=== PATIENT | female | born 1955 | race Hispanic/Latino ===

== ENCOUNTER 2018-02-24 14:48 | Emergency (ER) | payer OTHER ==
--- NOTE | 2018-02-24 16:55 | RAD REPORT ---
EXAM DESCRIPTION: Lumbar Spine 3 Views CLINICAL HISTORY: Radiculopathy COMPARISON: None. FINDINGS: Vertebral body heights appear maintained. No compression fracture noted. Disc thinning wit h small endplate osteophyte is noted L5-S1. Minimal degenerative anterolisthesis of L4 on 5 is seen. Cholecystectomy clips are present. IMPRESSION: Mild lower lumbar spondylosis.
--- NOTE | 2018-02-24 17:05 | EDPHYS ---
Physician Documentation [facility] Name: Karen Mueller Age: 62 yrs Sex: Female : 1955 Arrival Date: 02/24/2018 Time: 14:51 Bed 23 Private MD: Marcos Porter ED Physician Marcell Samuel HPI: 02/24 16:59 This 62 yrs old Female presents to ER via Ambulatory with complaints of Back pm1 Injury. 16:59 The patient presents with pain that is acute. The symptoms are located in the low back. pm1 Onset: The symptoms/episode began/occurred today, Just before lunch time. The pain does not radiate. Associated signs and symptoms: Pertinent negatives: abdominal pain, chest pain, dysuria, fever, numbness, tingling, vomiting, weakness. The problem was sustained when bending over, when lifting Bag of wet linen. Modifying factors: The patient symptoms are alleviated by OTC meds, Took two ibuprofen with lunch, the patient symptoms are aggravated by bending, lifting. Severity of symptoms: At their worst the symptoms were a " 5" out of "10", in the emergency department the symptoms have improved, a " 4" out of "10". The patient has not experienced similar symptoms in the past. Historical: - Allergies: 14:54 No Known Allergies; hj - Home Meds: 14:54 lisinopril 20 mg Oral tab 1 tab once daily [Active]; hj - PMHx: 14:54 Hypertension; hj - PSHx: 14:54 Cholecystectomy; hj - Immunization history:: Pneumococcal vaccine is not up to date, Flu vaccine is up to date. - Social history:: Smoking status: Patient/guardian denies using tobacco, never smoked. - Immunization history: Last tetanus immunization:. ROS: 16:59 Constitutional: Negative for fever, chills, and weight loss, Eyes: Negative for injury, pm1 pain, redness, and discharge, ENT: Negative for injury, pain, and discharge, Neck: Negative for injury, pain, and swelling, Cardiovascular: Negative for chest pain, palpitations, and edema, Respiratory: Negative for shortness of breath, cough, wheezing, and pleuritic chest pain, Abdomen/GI: Negative for abdominal pain, nausea, vomiting, diarrhea, and constipation. 16:59 : Negative for injury, bleeding, discharge, and swelling, MS/Extremity: Negative for injury and deformity, Skin: Negative for injury, rash, and discoloration, Neuro: Negative for headache, weakness, numbness, tingling, and seizure. 16:59 Back: Positive for of the low back area, Pain. Exam: 16:59 Constitutional: This is a well developed, well nourished patient who is awake, alert, pm1 and in no acute distress. Head/Face: Normocephalic, atraumatic. Neck: Trachea midline, no thyromegaly or masses palpated, and no cervical lymphadenopathy. Supple, full range of motion without nuchal rigidity, or vertebral point tenderness. No Meningismus. Chest/axilla: Normal chest wall appearance and motion. Nontender with no deformity. No lesions are appreciated. Cardiovascular: Regular rate and rhythm with a normal S1 and S2. No gallops, murmurs, or rubs. Normal PMI, no JVD. No pulse deficits. Respiratory: Lungs have equal breath sounds bilaterally, clear to auscultation and percussion. No rales, rhonchi or wheezes noted. No increased work of breathing, no retractions or nasal flaring. 16:59 Skin: Warm, dry with normal turgor. Normal color with no rashes, no lesions, and no evidence of cellulitis. MS/ Extremity: Pulses equal, no cyanosis. Neurovascular intact. Full, normal range of motion. 16:59 Back: pain, that is mild, of the lumbar area, normal spinal alignment noted, vertebral tenderness, is appreciated at lumbar area. 16:59 Neuro: Orientation: is normal, Mentation: is normal, Motor: moves all fours, strength is normal, strength is 5/5 in all extremities, Gait: is steady, at a normal pace, without difficulty, Deep tendon reflexes are 2+ (normal) in the right patellar, right Achilles, left patellar and left Achilles. Vital Signs: 14:55 BP 142 / 72; Pulse 75; Resp 18; Temp 97.5(TE); Pulse Ox 98% on R/A; Weight 66.68 kg; hj Height 5 ft. 7 in. (170.18 cm); Pain 4/10; 14:55 Body Mass Index 23.02 (66.68 kg, 170.18 cm) Orland Coma Score: 14:56 Eye Response: spontaneous(4). Verbal Response: oriented(5). Motor Response: obeys hj commands(6). Total: 15. Trauma Score (Adult): 14:56 Eye Response: spontaneous(1); Verbal Response: oriented(1); Motor Response: obeys hj commands(2); Systolic BP: > 89 mm Hg(4); Respiratory Rate: 10 to 29 per min(4); Rodrick Score: 15; Trauma Score: 12 MDM: 16:13 Patient medically screened. pm1 16:59 Data reviewed: vital signs. Data interpreted: Pulse oximetry: on room air is 98 %. pm1 Interpretation: normal. Counseling: I had a detailed discussion with the patient and/or guardian regarding: the historical points, exam findings, and any diagnostic results supporting the discharge/admit diagnosis, radiology results, the need for outpatient follow up, to return to the emergency department if symptoms worsen or persist or if there are any questions or concerns that arise at home. 17:00 ED course: Patient offered pain medications in ER and for discharge. Patient refused, pm1 only wants to take ibuprofen as needed. 02/24 16:21 Order name: Lumbar Spine (3 Views) XRAY; Complete Time: 16:56 pm1 Administered Medications: No medications were administered Disposition: 02/24/18 17:04 Discharged to Home. Impression: Low back pain. - Condition is Stable. - Discharge Instructions: Back Pain, Adult, Back Injury Prevention, [id number]. - Medication Reconciliation Form, Thank You Letter form. - Follow up: Emergency Department; When: As needed; Reason: Worsening of condition. Follow up: Marcos Porter MD; When: 2 - 3 days; Reason: Recheck today's complaints, Continuance of care, Re-evaluation by your physician. - Problem is new. - Symptoms have improved. Addendum: 02/27/2018 06:17 Co-signature as Attending Physician, Marcell Samuel MD Available for consultation at p s1 all times. . Signatures: Dispatcher [employer] EDMS Saeid Guzman, RN RN hj Dash Yepez, CLIENT ADVISOR CLIENT ADVISOR pm1 Marcell Samuel MD MD ps1 Bridget Masters RN RN rk2
--- NOTE | 2018-02-24 17:05 | ER ---
Nurse's Notes [facility] Name: Karen Mueller Age: 62 yrs Sex: Female : 1955 Arrival Date: 02/24/2018 Time: 14:51 Bed 23 Private MD: Marcos Porter Diagnosis: Low back pain Presentation: 02/24 14:52 Presenting complaint: Patient states: i was lifting wet linen towels in 5th floor when i hurt my back; denies numbness and tingling on legs;. Transition of care: patient was not received from another setting of care. Onset of symptoms was February 24, 2018. Care prior to arrival: None. 14:52 Method Of Arrival: Ambulatory 14:52 Acuity: SAMUEL 4 14:54 Mechanism of Injury: lifitng. Trauma event details: Injury occurred in the [facility], Injury occurred: in a public building. Injury occurred: February 24, 2018 Injury occurred at: 11:50. 16:06 Initial Sepsis Screen: Does the patient meet any 2 criteria? No. Patient's initial rk2 sepsis screen is negative. Does the patient have a suspected source of infection? No. Patient's initial sepsis screen is negative. Triage Assessment: 14:54 General: Appears in no apparent distress. uncomfortable, Behavior is calm, cooperative, hj appropriate for age. Pain: Complains of pain in lumbar area. 16:06 Neuro: Level of Consciousness is alert, obeys commands, Oriented to person, place, rk2 time, situation. Respiratory: Airway is patent Respiratory effort is even, unlabored, Respiratory pattern is regular, symmetrical. Derm: Skin is pink, warm \T\ dry. Trauma Activation: Not Applicable Physician: ED Physician; Name: ; Notified At: ; Arrived At: Physician: General Surgeon; Name: ; Notified At: ; Arrived At: Physician: Radiology; Name: ; Notified At: ; Arrived At: Physician: Respiratory; Name: ; Notified At: ; Arrived At: Physician: Lab; Name: ; Notified At: ; Arrived At: Historical: - Allergies: 14:54 No Known Allergies; hj - Home Meds: 14:54 lisinopril 20 mg Oral tab 1 tab once daily [Active]; hj - PMHx: 14:54 Hypertension; hj - PSHx: 14:54 Cholecystectomy; hj - Immunization history:: Pneumococcal vaccine is not up to date, Flu vaccine is up to date. - Social history:: Smoking status: Patient/guardian denies using tobacco, never smoked. - Immunization history: Last tetanus immunization:. Screenin:05 Abuse screen: Denies threats or abuse. Nutritional screening: No deficits noted. rk2 Tuberculosis screening: No symptoms or risk factors identified. Fall Risk None identified. Primary Survey: 14:55 A: Airway: patent, No supplemental oxygen in use on arrival. Oral cavity: clear, gag hj reflex present, Trachea midline. Breathing/Chest: Respiratory pattern: regular, Respiratory effort: spontaneous, unlabored, Breath sounds: clear, bilaterally. Chest inspection: symmetrical rise and fall of the chest. Circulation: Cardiac rhythm: sinus rhythm Heart tones present. Pulses: palpable lumbar area. Skin color: pink, Skin temperature: warm, dry. Disability Alert. 14:57 Reassessment Airway Airway Patent Oxygen No O2 Oral cavity Clear Trachea hj Breathing/Chest Respiratory pattern Regular Respiratory effort Spontaneous Unlabored Breath sounds Clear Chest inspection Symmetrical Circulation Heart rhythm Sinus rhythm Heart tones Present Pulses Palpable Color [place] Temperature Warm Dry Disability Alert. Vital Signs: 14:55 BP 142 / 72; Pulse 75; Resp 18; Temp 97.5(TE); Pulse Ox 98% on R/A; Weight 66.68 kg; hj Height 5 ft. 7 in. (170.18 cm); Pain 4/10; 14:55 Body Mass Index 23.02 (66.68 kg, 170.18 cm) hj Gaines Coma Score: 14:56 Eye Response: spontaneous(4). Verbal Response: oriented(5). Motor Response: obeys hj commands(6). Total: 15. Trauma Score (Adult): 14:56 Eye Response: spontaneous(1); Verbal Response: oriented(1); Motor Response: obeys hj commands(2); Systolic BP: > 89 mm Hg(4); Respiratory Rate: 10 to 29 per min(4); Rodrick Score: 15; Trauma Score: 12 ED Course: 14:51 Patient arrived in ED. rg4 14:51 Marcos Porter MD is Private Physician. rg4 14:53 Triage completed. hj 14:54 Arm band placed on left wrist. hj 15:57 Bridget Masters RN is Primary Nurse. rk2 16:03 Dash Yepez NP is [facility]. pm1 16:03 Marcell Samuel MD is Attending Physician. pm1 16:05 Patient has correct armband on for positive identification. Bed in low position. Call rk2 light in reach. 16:07 Patient maintains SpO2 saturation greater than 95% on room air. rk2 16:08 Thermoregulation: N/A. rk2 16:42 X-ray completed. Patient tolerated procedure well. Patient moved back from radiology. ag1 16:44 Lumbar Spine (3 Views) XRAY In Process Unspecified. EDMS 17:04 Marcos Porter MD is Referral Physician. pm1 17:20 No provider procedures requiring assistance completed. Patient did not have IV access rk2 during this emergency room visit. Administered Medications: No medications were administered Intake: 16:07 PO: 0ml; Total: 0ml. rk2 Outcome: 17:04 Discharge ordered by . pm1 17:20 Discharged to home ambulatory. rk2 17:20 Condition: good 17:20 Discharge instructions given to 17:21 Patient's length of stay was not longer than 2 hours. rk2 17:23 Patient left the ED. rk2 Signatures: Dispatcher [employer] EDMS Christi Shira ag1 Saeid Guzman RN RN Dash Yepez NP [employer]ER SUPPORT SPECIALIST pm1 Beronica Soto rg4 Bridget Masters RN RN rk2 Corrections: (The following items were deleted from the chart) 14:57 14:55 Pulse 75bpm; Resp 18bpm; Pulse Ox 98% RA; Temp 97.5F Temporal; 66.68 kg; Height 5 hj ft. 7 in.; BMI: 23.0; Pain 4/10; hj 17:25 17:21 BP 0 / ???; rk2 rk2
== END 2018-02-24 17:23 | disposition home or self-care (01) ==
LOC: ER 14:48
DX: M54.5 Low back pain (principal); I10 Essential (primary) hypertension
CPT/HCPCS: 72100; 99284

== ENCOUNTER → 2019-11-17 | Day surgery (SDC) | payer OTHER ==
--- NOTE | 2019-11-17 13:20 | RAD REPORT ---
EXAM DESCRIPTION: US - Follow Up [facility] - 11/17/2019 9:48 am CLINICAL HISTORY: Abnormal mammogram and ultrasound COMPARISON: Ultrasound October 04, 2019, mammogram August 05, 2019 FINDINGS: The patient presented for ultrasound-guided left breast biopsy based on findings detailed on the two referenced examinations. On initial technologist imaging and on follow-up physician imaging, the area of concern in the 12-1 o 'clock left breast detailed on the October 04 ultrasound study could not be reproduced. In the upper and upper outer quadrant left breast, no suspicious sonographic finding was identifiable. Therefore, the biopsy procedure was canceled. The September ultrasound and July mammogram studies were again reviewed. Findings are still consi dered suspicious. On the same day of the canceled biopsy procedure, the patient was contacted by [facility] and asked if she would return for a repeat ultrasound examination at no extra charge to try to find the mammogram/ultrasound abnormality. The patient declined this follow-up examination. Surgical excisional biopsy following mammographic needle localization is not likely an option. The ar ea of concern is not currently identifiable on 2D orthogonal projections needed for mammographic need le localization. Based on this decision by the patient, the next recommendation for the patient would be to undergo di agnostic mammography of the left breast and sonography of the left breast in February 2020 to re-evaluat e these findings. This would be an approximately six-month follow-up for the July/September imagi ng studies. IMPRESSION: 1. The ultrasound finding from September 2019 could not be reproduced at the time of the scheduled biopsy. The biopsy procedure was canceled. 2. Subsequent to the canceled procedure, the mammogram and ultrasound images were again reviewed and are still considered suspicious. The patient was asked if she could return for a second look ultrasou nd at no charge to try to find the ultrasound abnormality seen in September. The patient declined this follow-up examination. 3. Based on this patient decision, the next recommendation for the patient would be to undergo diagno stic left breast mammography and sonography February 2020 to re-evaluate the findings. BI-RAD: Category 4 suspicious ResultCode: S
== END ==
LOC: DS 08:32
PROVIDERS: ATTEND Obstetrics & Gynecology
DX: R92.8 Other abnormal and inconclusive findings on diagnostic imaging of breast (principal); Z53.9 Procedure and treatment not carried out, unspecified reason
CPT/HCPCS: 76642

== ENCOUNTER 2020-10-05 04:48 | Emergency (ER) | payer OTHER ==
--- NOTE | 2020-10-05 05:53 | ER ---
Nurse's Notes [facility] Name: Karen Mueller Age: 65 yrs Sex: Female : 1955 Arrival Date: 10/05/2020 Time: 04:51 Bed 8 Private MD: Marcos Porter Diagnosis: Right Arm Contusion Presentation: 10/05 05:03 Chief complaint: Patient states: Pt reports she had a fall yesterday around 4 PM, ea reports she fell on her right side and has been having right arm pain. Coronavirus screen: At this time, the client does not indicate any symptoms associated with coronavirus-19. Ebola Screen: No symptoms or risks identified at this time. Initial Sepsis Screen: Does the patient meet any 2 criteria? No. Patient's initial sepsis screen is negative. Does the patient have a suspected source of infection? No. Patient's initial sepsis screen is negative. Risk Assessment: Do you want to hurt yourself or someone else? Patient reports no desire to harm self or others. Onset of symptoms was October 05, 2020. 05:03 Method Of Arrival: Ambulatory ea 05:03 Acuity: SAMUEL 3 ea Triage Assessment: 05:06 General: Appears uncomfortable, Behavior is calm, cooperative, appropriate for age. ea Pain: Complains of pain in right arm. Historical: - Allergies: 05:06 No Known Allergies; ea - Home Meds: 05:06 lisinopril 20 mg Oral tab 1 tab once daily [Active]; ea - PMHx: 05:06 Hypertension; ea - PSHx: 05:06 Cholecystectomy; ea - Immunization history:: Adult Immunizations up to date. - Social history:: Smoking status: Patient denies any tobacco usage or history of. Screenin:05 Abuse screen: Denies threats or abuse. Nutritional screening: No deficits noted. ea Tuberculosis screening: No symptoms or risk factors identified. Fall Risk None identified. Assessment: 05:06 General: Appears in no apparent distress. Behavior is appropriate for age. Pain: ea Complains of pain in right arm. Neuro: Level of Consciousness is awake, alert, obeys commands, Oriented to person, place, time, situation. Cardiovascular: Patient's skin is warm and dry. Respiratory: Airway is patent Respiratory effort is even, unlabored, Respiratory pattern is regular, symmetrical. Derm: Skin is pink, warm \T\ dry. 06:07 Reassessment: Patient and/or family updated on plan of care and expected duration. Pain ea level reassessed. Patient is alert, oriented x 3, equal unlabored respirations, skin warm/dry/pink. Discharge instruction given to patient verbalized the understanding of instruction. Vital Signs: 05:03 BP 147 / 70; Pulse 72; Resp 18; Temp 98; Pulse Ox 99% ; ea ED Course: 04:51 Patient arrived in ED. mr 04:51 Marcos Porter MD is Private Physician. mr 04:53 Ignacio Liang MD is Attending Physician. [facility] 05:05 Triage completed. ea 05:05 Arm band placed on right wrist. Patient placed in an exam room, on a stretcher, on ea pulse oximetry. 05:05 Patient has correct armband on for positive identification. Placed in gown. Bed in low ea position. Call light in reach. Pulse ox on. NIBP on. 05:31 Humerus Right XRAY In Process Unspecified. EDDC 05:51 Santiago Roy MD is Referral Physician. [facility] 05:55 No provider procedures requiring assistance completed. Patient did not have IV access ea during this emergency room visit. 06:00 Anika Rico, OVI is Primary Nurse. ea Administered Medications: 06:06 Drug: Motrin 600 mg Route: PO; ea 06:09 Follow up: Response: No adverse reaction ea Outcome: 05:52 Discharge ordered by . 7 06:06 Discharged to home ambulatory. ea 06:06 Condition: stable 06:06 Discharge instructions given to patient, Instructed on discharge instructions, follow up and referral plans. medication usage, Demonstrated understanding of instructions, follow-up care, medications, Prescriptions given X 1. 06:07 Patient left the ED. ea Signatures: [facility]patcher [facility] mr Anika Rico, OVI RN Ignacio Box MD MD [facility]
--- NOTE | 2020-10-05 05:53 | EDPHYS ---
Physician Documentation [facility] Name: Karen Mueller Age: 65 yrs Sex: Female : 1955 Arrival Date: 10/05/2020 Time: 04:51 Bed 8 Private MD: Marcos Porter ED Physician Ignacio Liang HPI: 10/05 05:03 This 65 yrs old Female presents to ER via Unassigned with complaints of Arm mh7 Pain. 05:03 The patient or guardian complains of injury. The complaints affect the Right Upper Arm. mh7 Context: The problem was sustained at home, resulted from a fall, the patient slipped. Onset: The symptoms/episode began/occurred yesterday, at 16:00. Treatment prior to arrival includes: no previous treatment. Modifying factors: The symptoms are alleviated by nothing. the symptoms are aggravated by movement, lifting weight. Associated signs and symptoms: Pertinent positives: decreased range of motion, pain, Pertinent negatives: deformity, erythema, fever, nausea, numbness, swelling, tingling, vomiting, warmth, weakness. Severity of symptoms: At their worst the symptoms were moderate, last night, in the emergency department the symptoms are unchanged. Historical: - Allergies: 05:06 No Known Allergies; ea - Home Meds: 05:06 lisinopril 20 mg Oral tab 1 tab once daily [Active]; ea - PMHx: 05:06 Hypertension; ea - PSHx: 05:06 Cholecystectomy; ea - Immunization history:: Adult Immunizations up to date. - Social history:: Smoking status: Patient denies any tobacco usage or history of. ROS: 05:03 Constitutional: Negative for fever, chills, and weight loss, Eyes: Negative for injury, mh7 pain, redness, and discharge, ENT: Negative for injury, pain, and discharge, Neck: Negative for injury, pain, and swelling, Cardiovascular: Negative for chest pain, palpitations, and edema, Respiratory: Negative for shortness of breath, cough, wheezing, and pleuritic chest pain, Abdomen/GI: Negative for abdominal pain, nausea, vomiting, diarrhea, and constipation, Back: Negative for injury and pain, : Negative for injury, bleeding, discharge, and swelling, Skin: Negative for injury, rash, and discoloration, Neuro: Negative for headache, weakness, numbness, tingling, and seizure, Psych: Negative for depression, anxiety, suicide ideation, homicidal ideation, and hallucinations, Allergy/Immunology: Negative for hives, rash, and allergies, Endocrine: Negative for neck swelling, polydipsia, polyuria, polyphagia, and marked weight changes, Hematologic/Lymphatic: Negative for swollen nodes, abnormal bleeding, and unusual bruising. Exam: 05:03 Constitutional: This is a well developed, well nourished patient who is awake, alert, mh7 and in no acute distress. Head/Face: Normocephalic, atraumatic. Neck: Trachea midline, no thyromegaly or masses palpated, and no cervical lymphadenopathy. Supple, full range of motion without nuchal rigidity, or vertebral point tenderness. No Meningismus. Chest/axilla: Normal chest wall appearance and motion. Nontender with no deformity. No lesions are appreciated. Cardiovascular: Regular rate and rhythm with a normal S1 and S2. No gallops, murmurs, or rubs. Normal PMI, no JVD. No pulse deficits. Respiratory: Lungs have equal breath sounds bilaterally, clear to auscultation and percussion. No rales, rhonchi or wheezes noted. No increased work of breathing, no retractions or nasal flaring. Abdomen/GI: Soft, non-tender, with normal bowel sounds. No distension or tympany. No guarding or rebound. No evidence of tenderness throughout. Back: No spinal tenderness. No costovertebral tenderness. Full range of motion. Skin: Warm, dry with normal turgor. Normal color with no rashes, no lesions, and no evidence of cellulitis. 05:03 Neuro: Awake and alert, GCS 15, oriented to person, place, time, and situation. Cranial nerves II-XII grossly intact. Motor strength 5/5 in all extremities. Sensory grossly intact. Cerebellar exam normal. Normal gait. Psych: Awake, alert, with orientation to person, place and time. Behavior, mood, and affect are within normal limits. 05:03 Musculoskeletal/extremity: Extremities: noted in the right upper arm: pain, tenderness, ROM: limited active range of motion due to pain, in the right arm, limited passive range of motion due to pain, in the right arm, Circulation is intact in all extremities. Pulses: are normal with no appreciated deficits, Perfusion: the patient is normally perfused throughout, Perfusion: the extremity is normally perfused throughout, Sensation intact. Compartment Syndrome exam of affected extremity: is normal. no numbness, no tingling, no sensation deficit, no palor, no weak pulses, Joints: All joints appear normal with full range of motion. Weight bearing: able to fully bear weight, without difficulty, Tendon exam: specific tendon testing normal through active and passive range of motion Vital Signs: 05:03 BP 147 / 70; Pulse 72; Resp 18; Temp 98; Pulse Ox 99% ; ea MDM: 05:49 Differential diagnosis: dislocation, closed fracture, contusion, abrasion. Data [facility] reviewed: vital signs, nurses notes, radiologic studies, plain films. Data interpreted: Pulse oximetry: on room air is 99 %. Interpretation: normal. Counseling: I had a detailed discussion with the patient and/or guardian regarding: the historical points, exam findings, and any diagnostic results supporting the discharge/admit diagnosis, the presence of at least one elevated blood pressure reading (>120/80) during this emergency department visit, radiology results, the need for outpatient follow up, to return to the emergency department if symptoms worsen or persist or if there are any questions or concerns that arise at home. Refusal of service: The patient/guardian displays adequate decision making capability and despite a detailed discussion of alternatives, benefits, risks, and consequences refuses: Medications. 05:49 Response to treatment: the patient's symptoms have markedly improved after treatment. [facility] 05:52 Patient medically screened. [facility] 10/05 05:03 Order name: Humerus Right XRAY [facility] Administered Medications: 06:06 Drug: Motrin 600 mg Route: PO; ea 06:09 Follow up: Response: No adverse reaction ea Disposition: 10/05/20 05:52 Discharged to Home. Impression: Right Arm Contusion. - Condition is Stable. - Discharge Instructions: Contusion, [id number]. - Prescriptions for Ibuprofen 600 mg Oral Tablet - take 1 tablet by ORAL route every 8 hours As needed take with food; 12 tablet. - Work release form, Medication Reconciliation Form, Thank You Letter, Antibiotic Education, Prescription Opioid Use form. - Follow up: Private Physician; When: 1 - 2 days; Reason: Worsening of condition, Recheck today's complaints, Continuance of care, Re-evaluation by your physician. Follow up: Santiago Roy MD; When: 2 - 3 days; Reason: Worsening of condition, Recheck today's complaints. - Problem is new. - Symptoms have improved. Signatures: Dispatcher [employer] Anika Sanchez, Ignacio Zhang RN, ea, MD MD mh7 Corrections: (The following items were deleted from the chart) 05:51 05:49 Response to treatment: the patient's symptoms have mildly improved after mh7 treatment, [facility] 06:07 05:52 10/05/2020 05:52 Discharged to Home. Impression: Right Arm Contusion. Condition ea is Stable. Forms are Medication Reconciliation Form, Thank You Letter, Antibiotic Education, Prescription Opioid Use. Follow up: Private Physician; When: 1 - 2 days; Reason: Worsening of condition, Recheck today's complaints, Continuance of care, Re-evaluation by your physician. Follow up: Dr. Santiago Roy; When: 2 - 3 days; Reason: Worsening of condition, Recheck today's complaints. Problem is new. Symptoms have improved. [facility]
[2020-10-05] MEDS ORDERED: IBUPROFEN 400 MG TAB ONE (06:16)
[2020-10-05] MEDS ORDERED: IBUPROFEN 200 MG TAB PO ONE (06:16)
[2020-10-05 07:59] VITALS: BP 147/70; TEMP 98; O2SAT 99
--- NOTE | 2020-10-05 17:19 | RAD REPORT ---
EXAM DESCRIPTION: RAD - Humerus Right - 10/05/2020 5:31 am CLINICAL HISTORY: Trauma Humerus Right TECHNIQUE: Frontal and lateral views of the right humerus. COMPARISON: No relevant prior studies available. FINDINGS: Limitations: None. Bones/joints: No acute fracture. No dislocation. Soft tissues: No abnormality noted. No concerning radiopaque foreign body noted. IMPRESSION: No abnormality noted. Electronically signed by: Geri Mazariegos MD 10/05/2020 5:41 AM [employer] Due to temporary technical issues with the PACS/Fluency reporting system, reports are being signed by the in house radiologists without review as a courtesy to insure prompt reporting. The interpreting radiologist is fully responsible for the content of the report.
== END 2020-10-05 06:07 | disposition home or self-care (01) ==
LOC: ER 04:48
DX: S40.021A Contusion of right upper arm, initial encounter (principal); W01.0XXA Fall on same level from slipping, tripping and stumbling without subsequent striking against object, initial encounter; Y93.9 Activity, unspecified; Y92.009 Unspecified place in unspecified non-institutional (private) residence as the place of occurrence of the external cause; I10 Essential (primary) hypertension
CPT/HCPCS: 99284